=== PATIENT | male | born 1990 | race Caucasian/White ===

== ENCOUNTER 2021-04-28 05:41 | Outpatient (CLI) | payer BC, MEDICAID ==
[~2021-04-28] VITALS: Ht 185.5 cm; Wt 118.2 kg
[2021-04-29] MEDS ORDERED: OMG1KC PO (10:36)
[2021-04-29] MEDS ORDERED: GUAN1TAB21 PO (10:36)
[2021-04-29] MEDS ORDERED: ATOM100C PO (10:36)
[2021-04-29] MEDS ORDERED: ARIP15TA PO (10:36)
[2021-04-29] MEDS ORDERED: FAMO20TA3 PO (10:36)
[2021-04-29] MEDS ORDERED: CETI10TA17 PO (10:36)
[2021-04-29] MEDS ORDERED: MULT-974 PO (10:36)
[2021-04-29] MEDS ORDERED: GARL1TAB2 PO (10:36)
[2021-04-29] MEDS ORDERED: ATOR10TA66 PO (10:36)
== END 2021-04-29 18:53 | disposition home or self-care (01) ==
LOC: PREOP 05:41
PROVIDERS: ATTEND Surgery
DX: Z01.818 Encounter for other preprocedural examination (principal)

== ENCOUNTER 2021-05-06 07:51 | Day surgery (SDC) | payer BC, MEDICAID ==
[~2021-05-06] VITALS: Ht 185.5 cm; Wt 118.2 kg
[2021-05-06] VITALS (11 sets, daily range): BP systolic 103–167; BP diastolic 20–98
[~2021-05-06 07:51] MED LIST: ARIP15TA PO; ATOM100C PO; ATOR10TA66 PO; CETI10TA17 PO; FAMO20TA3 PO; GARL1TAB2 PO; GUAN1TAB21 PO; MULT-974 PO; OMG1KC PO
[2021-05-06] MEDS ORDERED: ceFAZolin 2 GM IV Premixed 50 ML IV ONE (08:00)
--- NOTE | 2021-05-06 08:09 | Progress Note-Pre Operative ---
Pre-Operative Progress Note H&P Reviewed The H&P was reviewed, patient examined and no changes noted. Date Seen by Provider: May 06, 2021 Time Seen by Provider: 08:08 Date H&P Reviewed: May 06, 2021 Time H&P Reviewed: 08:08 Pre-Operative Diagnosis: symptomatic cholelithiasis MAGALY KYLE DO May 06, 2021 08:09
[2021-05-06] MEDS ORDERED: LIDOCAINE/EPI 1%-1:100,000 (XYLOCAINE) 20ML ONE (08:22)
[2021-05-06] MEDS: LACTATED RINGERS 1,000 ML IV PRN ×2 (08:26→10:25)
[2021-05-06] MEDS ORDERED: fentaNYL INJ 100 MCG/2 ML AMP ONE ×2 (08:37→10:23)
[2021-05-06] MEDS ORDERED: MIDAZOLAM 2 MG/2 ML (VERSED) VIAL ONE (08:37)
[2021-05-06] MEDS ORDERED: proPOfol 200 MG/20 ML (DIPRIVAN) VIAL IV ONE (09:38)
[2021-05-06] MEDS ORDERED: ROCURONIUM 10 MG/ML 5 ML SYRINGE IV ONE (09:38)
[2021-05-06] MEDS ORDERED: LIDOCAINE PF 2% 5 ML (XYLOCAINE) VIAL ONE (09:38)
[2021-05-06] MEDS ORDERED: SEVOFLURANE (ULTANE) 15 ML INHAL SOLN ONE ×2 (09:38→10:32)
[2021-05-06] MEDS ORDERED: ONDANSETRON 4 MG/2 ML (SDV) Z0FRAN ONE ×2 (09:38→13:26)
[2021-05-06] MEDS ORDERED: HYDROmorphone 2 MG/ML VIAL (DILAUDID) ONE (09:49)
[2021-05-06] MEDS ORDERED: KETOROLAC 30 MG/ML VIAL ONE (10:23)
--- NOTE | 2021-05-06 10:23 | Progress Note-Post Operative ---
Post-Operative Progess Note Surgeon (s)/Body Straightener (s) Surgeon MAGALY KYLE DO Body Straightener: Dr. Doty to assist in retraction dissection and closure. Pre-Operative Diagnosis symptomatic cholelithiasis Post-Operative Diagnosis same Procedure & Operative Findings Date of Procedure 05/06/21 Procedure Performed/Findings PROCEDURE: Laparoscopic cholecystectomy with attempted intraoperative cholangiogram. COMPLICATIONS: None. PROCEDURE: The patient was taken to the operating suite and was prepped and draped in sterile fashion. A surgical pause was performed. Just superior to the umbilicus, a 12 mm incision was made. Dissection was taken down to the fascia, which was then scored and grasped with a Shayy and the abdomen was then entered. A 0 Vicryl suture was placed in a [id number] fashion and a Trivedi trocar was placed and secured. Pneumoperitoneum was achieved. A 5mm trochar place in the subxyphoid and 2 in the right upper quadrant. The gallbladder was then grasped and elevated. The cystic duct, and cystic artery were then dissected out. Clip was placed on the distal portion of the cystic duct which was then partially transected. An arrow catheter was attempted to be inserted into the duct but unable to be. The cholangiogram was then performed not done due to small narrow duct. Clips were placed on proximal portion of the cystic duct and then the duct was then transected. Clips were placed along the proximal and distal portion of the cystic artery which was then transected. Hook cautery was used to dissect the gallbladder from the gallbladder fossa achieving hemostasis. The gallbladder was placed in an Endobag and removed through the 12 mm trocar site. The abdomen was then reinspected. Copious amounts of irrigation were used to irrigate the abdomen and there were no signs of active bleeding. Hemostasis had been achieved. The 12 mm fascial defect was then closed with 0 Vicryl suture that had been placed in a [id number] fashion. The abdomen was then desufflated, the trocars were removed. The abdomen was then washed and dried. The skin was then closed using 4-0 Monocryl in a subcuticular fashion. The abdomen was washed and dried and Skin Affix was place over incisions. Patient tolerated the procedure well without any complications and was taken to the recovery room in stable condition. Anesthesia Type general Estimated Blood Loss Estimated blood loss (mL): minimal Specimens/Packing Specimens Removed gallbladder MAGALY KYLE DO May 06, 2021 10:23
[2021-05-06] MEDS ORDERED: ACHD5005 PO (10:24)
[2021-05-06] MEDS ORDERED: DOCU-143 PO (10:24)
--- NOTE | 2021-05-06 10:25 | Discharge Inst-Simple/Standard ---
Discharge Inst-Standard Discharge Medications New, Converted or Re-Newed RX: Transmitted to Pharmacy Patient Instructions/Follow Up Plan of Care/Instructions/FU: 2-3 weeks Amor Activity as Tolerated: No Discharge Diet: Regular Diet Other Inst to Patient Follow up Appt: Make appointment for 2-3 weeks. Instructions: No lifting greater than 10 pounds. No strenuous activity. May shower in 24 hours, no tub bath or soaking. Use incentive spirometer at home as directed. No Smoking Skin/Wound Care: You have special glue over incision, it will fall off on it's own. Symptoms to Report: Appetite Changes, Extremity Discoloration, Numbness/Tingling, Swelling Increased, Bleeding Excessive, Eyesight Changes, Pain Increased, Urine Color Change, Constipation(Persistent), Fever over 101 degree F, Pain/Pressure in chest, Urinating Difficulty, Cough Up/Vomit Blood, Heart Beat Irreg/Pounding, Pain/Pressure in jaw, Vaginal Bleeding Increase, Cramps in feet or legs, Lightheadedness, Pain/Pressure in shoulder, Diarrhea(Persistent), Memory Changes Suddenly, Questions/Concerns, Weight gain consecutive days, Dizziness/Fainting, Nausea/Vomiting, Shortness of Breath, Weight gain over 2 pounds. If eyes or skin turn yellow notify physician. If questions or concerns contact your physician Or seek help at emergency department. MAGALY KYLE DO May 06, 2021 10:25
[2021-05-06] MEDS ORDERED: GLYCOPYRROLATE 0.2 MG/ML (ROBINUL) 2 ML VIAL ONE (10:32)
[2021-05-06] MEDS ORDERED: NEOSTIGMINE 3 MG/3 ML VIAL ONE (10:32)
[2021-05-06] MEDS ORDERED: ONDANSETRON 4 MG/2 ML (SDV) Z0FRAN IVP PRN (11:00)
[2021-05-06] MEDS ORDERED: HYDROmorphone 2 MG/ML VIAL (DILAUDID) IV ONE (11:00)
--- NOTE | 2021-05-06 12:36 | Anesthesia-General Post-Op ---
General Patient Condition Mental Status/LOC: Same as Preop Cardiovascular: Satisfactory Nausea/Vomiting: Absent Respiratory: Satisfactory Pain: Controlled Complications: Absent Post Op Complications Complications None Follow Up Care/Instructions Patient Instructions None needed. Anesthesia/Patient Condition Patient Condition Patient is doing well, no complaints, stable vital signs, no apparent adverse anesthesia problems. No complications reported per nursing. D/C home per [facility] [place] Criteria: Yes RODRIGO FOSTER CRNA May 06, 2021 12:36
[2021-05-06] MEDS ORDERED: ONDANSETRON 4 MG/2 ML (SDV) Z0FRAN IVP ONE (13:30)
== END 2021-05-06 14:50 | disposition home or self-care (01) ==
LOC: SDC 07:51
PROVIDERS: ATTEND Surgery
DX: K80.10 Calculus of gallbladder with chronic cholecystitis without obstruction (principal); R62.50 Unspecified lack of expected normal physiological development in childhood; F84.0 Autistic disorder; F90.9 Attention-deficit hyperactivity disorder, unspecified type; Z79.899 Other long term (current) drug therapy
CPT/HCPCS: 87081